=== PATIENT | female | born 1985 | race Caucasian/White ===

== ENCOUNTER 2016-06-27 12:04 | Emergency (ER) | payer OTHER ==
[~2016-06-27] VITALS: Ht 165.1 cm; Wt 56.7 kg
[~2016-06-27 12:04] MED LIST: ALBUTEROL0.09 MG/A2 INH; AMOXICILLIN500 MG PO; ANTIVERT/2525 MG PO; BENTYL10 MG PO; CEFTIN500 M1 PO; CIPRO500 MG PO; HYDROCODONE BIT1 T11 PO; KEFLEX500 MG PO; MACROBID100 M1 PO; MOTRIN600 MG PO; MOTRIN800 MG PO; MULTIVITAMIN FO1 CAP PO; NAPROSYN500 MG PO; NEXIUM20 MG PO; PERCOCET 325 MG1 TA2 PO; PRENATAL1 TA3 PO; REMERON30 MG PO; ULTRAM50 MG PO; ZOFRAN ODT4 MG SL
[2016-06-27] MEDS ORDERED: AMOXICILLIN500 M2 PO (13:52)
[2016-07-03] MEDS ORDERED: PREDNISONE50 MG PO (01:57)
[2016-07-03] MEDS ORDERED: NAPROSYN500 MG PO (01:57)
[2016-07-27] MEDS ORDERED: NAPROSYN500 MG PO (15:06)
[2016-07-27] MEDS ORDERED: HYDROCODONE BIT1 T11 PO (16:24)
[2016-08-02] MEDS ORDERED: ZOFRAN4 MG PO (11:42)
[2016-08-03] MEDS ORDERED: Zofran4 MG PO (09:34)
[2016-08-03] MEDS ORDERED: PERCOCET 325 MG1 TA2 PO (09:36)
[2016-08-10] MEDS ORDERED: PERCOCET 325 MG1 TA2 PO (18:47)
== END 2016-06-27 13:54 | disposition home or self-care (01) ==
LOC: ED 12:04
DX: J02.9 Acute pharyngitis, unspecified (principal); F17.200 Nicotine dependence, unspecified, uncomplicated; Z91.030 Bee allergy status; Z88.8 Allergy status to other drugs, medicaments and biological substances; Z79.899 Other long term (current) drug therapy

== ENCOUNTER → 2016-09-27 | Outpatient (CLI) | payer OTHER ==
[~2016-09-27] MED LIST changes: +AMOXICILLIN500 M2 PO; +PREDNISONE50 MG PO; +ZOFRAN4 MG PO; +Zofran4 MG PO
== END | disposition home or self-care (01) ==
LOC: ORTHO 01:57
DX: S82.401D Unspecified fracture of shaft of right fibula, subsequent encounter for closed fracture with routine healing (principal); Z47.33 Aftercare following explantation of knee joint prosthesis; X58.XXXD Exposure to other specified factors, subsequent encounter

== ENCOUNTER → 2016-10-18 | Outpatient (CLI) | payer OTHER | END | disposition home or self-care (01) | LOC: ORTHO 00:31 | DX: Z47.89 Encounter for other orthopedic aftercare (principal); S82.61XD Displaced fracture of lateral malleolus of right fibula, subsequent encounter for closed fracture with routine healing; X58.XXXD Exposure to other specified factors, subsequent encounter ==

== ENCOUNTER 2016-11-11 11:43 | Emergency (ER) | payer OTHER ==
[~2016-11-11] VITALS: Ht 165.1 cm; Wt 56.7 kg
== END 2016-11-11 13:29 | disposition home or self-care (01) ==
LOC: ED 11:43
DX: S93.401A Sprain of unspecified ligament of right ankle, initial encounter (principal); F17.200 Nicotine dependence, unspecified, uncomplicated; Z88.8 Allergy status to other drugs, medicaments and biological substances; X58.XXXA Exposure to other specified factors, initial encounter; Y93.9 Activity, unspecified; Y92.9 Unspecified place or not applicable; Y99.9 Unspecified external cause status

== ENCOUNTER → 2017-01-17 | Outpatient (CLI) | payer OTHER | END | disposition home or self-care (01) | LOC: ORTHO 02:32 | DX: S82.401D Unspecified fracture of shaft of right fibula, subsequent encounter for closed fracture with routine healing (principal); X58.XXXD Exposure to other specified factors, subsequent encounter ==

== ENCOUNTER 2017-01-20 16:20 | Emergency (ER) | payer OTHER ==
[~2017-01-20] VITALS: Ht 162.5 cm; Wt 56.7 kg
[2017-01-20 16:53] LABS: BILIRUBIN NEGATIVE (NEGATIVE); BLOOD NEGATIVE (NEGATIVE); CLARITY SL CLOUDY (CLEAR); COLOR YELLOW (YELLOW); GLUCOSE NEGATIVE (NEGATIVE); KETONE NEGATIVE (NEGATIVE); LEUKO ESTERASE TRACE (NEGATIVE); NITRITE NEGATIVE (NEGATIVE); PROTEIN NEGATIVE (NEGATIVE); SPECIFIC GRAVITY <= 1.005 (1.005-1.030); UROBILINOGEN 0.2 E.U./dl (0.2-1.0)
[2017-01-20 16:57] LABS: BACTERIA 2+; RBC 0-2 rbc/hpf (0-2); URINE REFLEX COMMENT YES (NO)
[2017-01-20 17:22] LABS: BASO % 0.1 % (0.0-1.0); EOS # 0.1 10*3/uL (0.0-0.4); EOS % 1.6 % (1.0-4.0); HEMATOCRIT 32.7 % (37.0-47.0); HEMOGLOBIN 11.2 g/dl (12.0-16.0); LYMPH # 3.4 10*3/uL (1.3-4.4); MEAN CELL VOLUME 91.1 fl (81.0-99.0); MEAN CORPUSCULAR HGB 31.2 pg (27.0-31.0); MEAN CORPUSCULAR HGB CONC 34.3 g/dl (33.0-37.0); MEAN PLATELET VOLUME 9.9 fl (9.6-12.3); MONO # 0.5 10*3/uL (0.1-1.0); MONO % 5.9 % (3.0-9.0); NEUT # 4.8 10*3/uL (2.3-7.9); NEUT % 54.2 % (47.0-73.0); PLATELET COUNT AUTOMATED 256 10*3/uL (130-400); RED BLOOD COUNT 3.59 10*6/uL (4.10-5.10); RED CELL DISTRI WIDTH 12.5 % (0-14.5); WHITE BLOOD COUNT 8.9 10*3/uL (4.8-10.8)
[2017-01-20 17:36] LABS: ALKALINE PHOSPHATASE 51 U/L (45-117); BILIRUBIN, TOTAL 0.8 mg/dl (0.2-1.0); BUN 9 mg/dl (7-24); CARBON DIOXIDE 25 mmol/L (21-32); CHLORIDE 108 mmol/L (98-107); EST GLOM FILT AFRICAN AMERICAN > 60 ml/min; GLUCOSE 88 mg/dL (65-99); POTASSIUM 3.6 mmol/L (3.5-5.1); SGOT/AST 11 IU/L (3-35); SGPT/ALT 17 U/L (12-78); SODIUM 139 mmol/L (136-145); TOTAL PROTEIN 7.3 gm/dL (6.4-8.2)
[2017-01-20] MEDS ORDERED: ZOFRAN ODT4 MG SL (19:02)
== END 2017-01-20 19:17 | disposition home or self-care (01) ==
LOC: ED 16:20
PROVIDERS: Physician Assistant
DX: R10.31 Right lower quadrant pain (principal); F17.200 Nicotine dependence, unspecified, uncomplicated; Z98.51 Tubal ligation status; Z88.8 Allergy status to other drugs, medicaments and biological substances

== ENCOUNTER 2017-03-02 19:24 | Emergency (ER) | payer OTHER ==
[~2017-03-02] VITALS: Ht 165.1 cm; Wt 56.7 kg
[2017-03-02] MEDS ORDERED: CEPHALEXIN500 M1 PO (20:03)
== END 2017-03-02 21:03 | disposition home or self-care (01) ==
LOC: ED 19:24
DX: T22.011A Burn of unspecified degree of right forearm, initial encounter (principal); L08.89 Other specified local infections of the skin and subcutaneous tissue; F17.200 Nicotine dependence, unspecified, uncomplicated; Z88.8 Allergy status to other drugs, medicaments and biological substances; X08.8XXA Exposure to other specified smoke, fire and flames, initial encounter; Y93.89 Activity, other specified; Y92.89 Other specified places as the place of occurrence of the external cause; Y99.8 Other external cause status

== ENCOUNTER 2017-04-05 11:32 | Emergency (ER) | payer OTHER ==
[~2017-04-05] VITALS: Ht 165.1 cm; Wt 59.9 kg
[~2017-04-05 11:32] MED LIST changes: +CEPHALEXIN500 M1 PO
[2017-04-05] MEDS ORDERED: NAPROSYN500 MG PO (13:09)
== END 2017-04-05 13:28 | disposition home or self-care (01) ==
LOC: ED 11:32
DX: R51 Headache (principal); F17.200 Nicotine dependence, unspecified, uncomplicated; Z98.51 Tubal ligation status; Z88.8 Allergy status to other drugs, medicaments and biological substances

== ENCOUNTER 2017-04-17 19:50 | Emergency (ER) | payer OTHER ==
[~2017-04-17] VITALS: Ht 162.5 cm; Wt 61.1 kg
[2017-04-17] MEDS ORDERED: ORPHENADRINE E100 MG PO (21:16)
== END 2017-04-17 21:22 | disposition home or self-care (01) ==
LOC: ED 19:50
DX: M54.5 Low back pain (principal); M25.571 Pain in right ankle and joints of right foot; F17.200 Nicotine dependence, unspecified, uncomplicated; R51 Headache; Z91.030 Bee allergy status; Z88.8 Allergy status to other drugs, medicaments and biological substances; W20.8XXA Other cause of strike by thrown, projected or falling object, initial encounter; Y93.89 Activity, other specified; Y92.89 Other specified places as the place of occurrence of the external cause; Y99.8 Other external cause status

== ENCOUNTER 2017-05-04 21:52 | Emergency (ER) | payer OTHER ==
[~2017-05-04] VITALS: Ht 165.1 cm; Wt 61.2 kg
[~2017-05-04 21:52] MED LIST changes: +ORPHENADRINE E100 MG PO
== END 2017-05-04 23:04 | disposition home or self-care (01) ==
LOC: ED 21:52
DX: R21 Rash and other nonspecific skin eruption (principal); F17.200 Nicotine dependence, unspecified, uncomplicated; Z98.51 Tubal ligation status; Z91.030 Bee allergy status; Z88.8 Allergy status to other drugs, medicaments and biological substances

== ENCOUNTER → 2017-05-23 | Outpatient (CLI) | payer OTHER | END | disposition home or self-care (01) | LOC: ORTHO 00:57 | DX: S82.61XD Displaced fracture of lateral malleolus of right fibula, subsequent encounter for closed fracture with routine healing (principal); X58.XXXD Exposure to other specified factors, subsequent encounter ==

== ENCOUNTER → 2017-05-27 | Outpatient (CLI) | payer OTHER ==
[2017-05-27 11:05] LABS: BASO % 0.3 % (0.0-1.0); EOS # 0.2 10*3/uL (0.0-0.4); EOS % 2.4 % (1.0-4.0); HEMATOCRIT 33.9 % (37.0-47.0); HEMOGLOBIN 11.5 g/dl (12.0-16.0); LYMPH % 38.9 % (27.0-41.0); MEAN CELL VOLUME 92.1 fl (81.0-99.0); MEAN CORPUSCULAR HGB 31.3 pg (27.0-31.0); MEAN CORPUSCULAR HGB CONC 33.9 g/dl (33.0-37.0); MEAN PLATELET VOLUME 9.6 fl (9.6-12.3); MONO # 0.7 10*3/uL (0.1-1.0); NEUT # 3.7 10*3/uL (2.3-7.9); PLATELET COUNT AUTOMATED 275 10*3/uL (130-400); RED BLOOD COUNT 3.68 10*6/uL (4.10-5.10); RED CELL DISTRI WIDTH 12.9 % (0-14.5); WHITE BLOOD COUNT 7.6 10*3/uL (4.8-10.8)
[2017-05-27 11:31] LABS: POTASSIUM 3.7 mmol/L (3.5-5.1)
== END ==
LOC: LAB 10:10
PROVIDERS: Orthopaedic Surgery
DX: Z01.818 Encounter for other preprocedural examination (principal); Z87.891 Personal history of nicotine dependence

== ENCOUNTER → 2017-06-02 | Day surgery (SDC) | payer OTHER ==
[~2017-06-02] VITALS: Ht 165.1 cm; Wt 62.1 kg
[2017-06-02] VITALS (10 sets, daily range): BP systolic 92–119; BP diastolic 50–88
[~2017-06-02] MED LIST changes: +NORCO 5-325 TA1 EACH PO
--- NOTE | ~2017-06-02 | O ---
[place], [place] OPERATIVE NOTE NAME: DEMARCO HOU [facility] #: [id number] UNIT #: [id number] ROOM: DOCTOR: BETY YANES DO BIRTHDATE: [birth year] DOS: 06/02/2017 PREOPERATIVE DIAGNOSIS: Retained hardware, right ankle. POSTOPERATIVE DIAGNOSIS: Retained hardware, right ankle. OPERATIVE PROCEDURE: Removal of retained hardware, right ankle. SURGEON: Bety Yanes DO. PARTS PERSON: Heron. ANESTHESIA: General LMA intubation. INDICATIONS: The patient is a 31-year-old female with a history of a right ankle lateral malleolus fracture approximately 11 months ago. The patient had excellent healing of the fracture, but continued to complain of discomfort about the screws on the lateral ankle. The risks and benefits of removal of hardware were explained to the patient preoperatively. Preoperative labs and x-rays were obtained. PROCEDURE IN DETAIL: The right lower extremity was marked in the holding room. The patient was brought to the operative suite. A general anesthetic with LMA intubation was performed. The patient received Ancef 1 gram IV piggyback preoperatively. The timeout was performed. The tourniquet was placed at the right upper thigh. The right lower extremity was prepped and draped in the usual orthopedic fashion. The extremity was exsanguinated. The tourniquet was inflated to 250 mmHg. The incision was planned along the lateral malleolus distally along the previously made incision, which was noted to be well healed without evidence of infection. The incision was made sharply with a scalpel. Subcutaneous tissue was spread down to the level of the plate and screws, which were noted to be covered with a thin layer of fibrous tissue. The Meridian elevator was used to expose the plate and screws. There were noted to be 5 screws within the plate and 2 of these were locking screws. The screws were removed using a handheld screwdriver. The plate was then removed using the Meridian elevator. All screw holes were cleared of any remaining fibrous or bony debris. A culture was taken deep within the screw holes. A single lag screw remained from anterior to posterior and this was removed in a similar fashion. The curette was used to remove any debris from the screw hole. The area was copiously irrigated with normal saline. The C-arm was noted to be used throughout the case to confirm positioning and removal of all hardware. The wound was closed in a layered fashion using 2-0 Vicryl, followed by 4-0 Prolene in a horizontal mattress suture fashion. The area was injected with lidocaine 2% with epinephrine. Xeroform, 4 x 4s, cast padding and an Marvin bandage were used to complete the dressing. The tourniquet was released. The anesthetic was reversed. The patient was extubated and taken to the recovery [place], [place] OPERATIVE NOTE NAME: DEMARCO HOU UNIT #: [id number] ROOM: DOCTOR: BETY YANES DO BIRTHDATE: [birth year] room in satisfactory condition. Sponge and needle count correct. ESTIMATED BLOOD LOSS: None. SPECIMENS: Culture and gram stain, 1 plate and 6 screws. DRAINS: None. PACKING: None. COMPLICATIONS: None. BETY YANES DO CM:OPRECORD:OPERATIVE NOTE 52 31 BETY YANES DO 06/02/172032 interface
== END | disposition home or self-care (01) ==
LOC: SDC 05-27 10:15
DX: Z47.2 Encounter for removal of internal fixation device (principal); F41.9 Anxiety disorder, unspecified; F17.210 Nicotine dependence, cigarettes, uncomplicated; Z79.899 Other long term (current) drug therapy; Z88.8 Allergy status to other drugs, medicaments and biological substances; Z98.51 Tubal ligation status

== ENCOUNTER 2017-06-09 18:54 | Emergency (ER) | payer OTHER ==
[~2017-06-09] VITALS: Wt 61.2 kg
[2017-06-09] MEDS ORDERED: NORCO 5-325 TA1 EACH PO (19:03)
[2017-06-09] MEDS ORDERED: IMITREX5 M1 PO (19:03)
== END 2017-06-09 19:45 | disposition home or self-care (01) ==
LOC: ED 18:54
DX: M25.571 Pain in right ankle and joints of right foot (principal); F17.200 Nicotine dependence, unspecified, uncomplicated; F10.10 Alcohol abuse, uncomplicated; Z91.030 Bee allergy status; Z88.8 Allergy status to other drugs, medicaments and biological substances; Z79.899 Other long term (current) drug therapy

== ENCOUNTER 2017-06-28 10:03 | Emergency (ER) | payer OTHER ==
[~2017-06-28] VITALS: Ht 167.6 cm; Wt 59.0 kg
[~2017-06-28 10:03] MED LIST changes: +IMITREX5 M1 PO
[2017-06-28] MEDS ORDERED: Motrin,Rufen800 MG PO (12:47)
[2017-06-28] MEDS ORDERED: CYCLOBENZAPRINE10 MG PO (12:47)
== END 2017-06-28 13:15 | disposition home or self-care (01) ==
LOC: ED 10:03
DX: S16.1XXA Strain of muscle, fascia and tendon at neck level, initial encounter (principal); F10.10 Alcohol abuse, uncomplicated; Z98.51 Tubal ligation status; Z79.899 Other long term (current) drug therapy; Z88.8 Allergy status to other drugs, medicaments and biological substances; Z91.030 Bee allergy status; V49.59XA Passenger injured in collision with other motor vehicles in traffic accident, initial encounter; Y93.89 Activity, other specified; Y92.89 Other specified places as the place of occurrence of the external cause; Y99.8 Other external cause status

== ENCOUNTER → 2017-07-06 | Outpatient (CLI) | payer OTHER ==
[~2017-07-06] MED LIST changes: +CYCLOBENZAPRINE10 MG PO; +Motrin,Rufen800 MG PO
== END | disposition home or self-care (01) ==
LOC: LAB 06:54 → RAD 06:54 → US 07:30
DX: M79.605 Pain in left leg (principal); R07.81 Pleurodynia; R10.12 Left upper quadrant pain; M62.838 Other muscle spasm; V89.9XXA Person injured in unspecified vehicle accident, initial encounter; Y93.89 Activity, other specified; Y92.89 Other specified places as the place of occurrence of the external cause; Y99.8 Other external cause status

== ENCOUNTER 2017-07-27 16:49 | Emergency (ER) | payer OTHER ==
[~2017-07-27] VITALS: Wt 61.2 kg
[2017-07-27] MEDS ORDERED: CYCLOBENZAPRINE10 MG PO (16:53)
[2017-07-27] MEDS ORDERED: Motrin,Rufen800 MG PO (17:04)
[2017-07-27] MEDS ORDERED: AUGMENTIN 875875 MG PO (17:04)
== END 2017-07-27 17:18 | disposition home or self-care (01) ==
LOC: ED 16:49
DX: H92.01 Otalgia, right ear (principal); F17.200 Nicotine dependence, unspecified, uncomplicated; Z98.51 Tubal ligation status; Z98.890 Other specified postprocedural states; Z79.899 Other long term (current) drug therapy; Z91.030 Bee allergy status; Z88.8 Allergy status to other drugs, medicaments and biological substances

== ENCOUNTER 2017-12-02 20:18 | Emergency (ER) | payer OTHER ==
[~2017-12-02] VITALS: Ht 165.1 cm; Wt 59.9 kg
[~2017-12-02 20:18] MED LIST changes: +AUGMENTIN 875875 MG PO
[2017-12-02 20:57] LABS: BILIRUBIN 1+ (NEGATIVE); BLOOD 3+ (NEGATIVE); CLARITY CLEAR (CLEAR); COLOR ORANGE (YELLOW); GLUCOSE 1+ (NEGATIVE); KETONE NEGATIVE (NEGATIVE)
[2017-12-02 20:58] LABS: LEUKO ESTERASE TRACE (NEGATIVE); NITRITE POSITIVE (NEGATIVE); PH 6.5 (5.0-9.0)
[2017-12-02 21:07] LABS: BACTERIA 1+; EPITHELIAL CELLS 15-20; RBC 31-40 rbc/hpf (0-2); WBC 21-30 wbc/hpf (0-5)
[2017-12-02] MEDS ORDERED: SEPTDS PO (21:16)
[2017-12-02] MEDS ORDERED: PYRIDIUM200 M1 PO (21:16)
== END 2017-12-02 21:23 | disposition home or self-care (01) ==
LOC: ED 20:18
PROVIDERS: Physician Assistant
DX: N39.0 Urinary tract infection, site not specified (principal); Z88.8 Allergy status to other drugs, medicaments and biological substances; Z91.030 Bee allergy status

== ENCOUNTER 2017-12-30 19:51 | Emergency (ER) | payer OTHER ==
[~2017-12-30] VITALS: Ht 165.1 cm; Wt 60.8 kg
[~2017-12-30 19:51] MED LIST changes: +PYRIDIUM200 M1 PO; +SEPTDS PO
[2017-12-30 20:07] LABS: BILIRUBIN NEGATIVE (NEGATIVE); BLOOD NEGATIVE (NEGATIVE); CLARITY CLEAR (CLEAR); COLOR YELLOW (YELLOW); GLUCOSE NEGATIVE (NEGATIVE); KETONE NEGATIVE (NEGATIVE); LEUKO ESTERASE NEGATIVE (NEGATIVE); NITRITE NEGATIVE (NEGATIVE); PH 5.5 (5.0-9.0); SPECIFIC GRAVITY <= 1.005 (1.005-1.030); UROBILINOGEN 0.2 E.U./dl (0.2-1.0)
[2017-12-30 20:16] LABS: BACTERIA TRACE; WBC 0-2 wbc/hpf (0-5)
[2017-12-30 20:27] LABS: BASO % 0.2 % (0.0-1.0); EOS # 0.2 10*3/uL (0.0-0.4); EOS % 2.8 % (1.0-4.0); HEMATOCRIT 31.4 % (37.0-47.0); HEMOGLOBIN 10.3 g/dl (12.0-16.0); LYMPH # 2.6 10*3/uL (1.3-4.4); MEAN CELL VOLUME 92.6 fl (81.0-99.0); MEAN CORPUSCULAR HGB 30.4 pg (27.0-31.0); MEAN CORPUSCULAR HGB CONC 32.8 g/dl (33.0-37.0); MEAN PLATELET VOLUME 8.9 fl (9.6-12.3); MONO # 0.5 10*3/uL (0.1-1.0); NEUT # 2.5 10*3/uL (2.3-7.9); NEUT % 43.8 % (47.0-73.0); PLATELET COUNT AUTOMATED 239 10*3/uL (130-400); RED BLOOD COUNT 3.39 10*6/uL (4.10-5.10); RED CELL DISTRI WIDTH 13.2 % (0-14.5); WHITE BLOOD COUNT 5.8 10*3/uL (4.8-10.8)
[2017-12-30 20:42] LABS: ALBUMIN 3.9 gm/dl (3.1-4.5); ALKALINE PHOSPHATASE 45 U/L (45-117); BUN 9 mg/dl (7-24); CHLORIDE 106 mmol/L (98-107); CREATININE 0.73 mg/dL (0.55-1.02); LIPASE 74 U/L (73-393); POTASSIUM 3.4 mmol/L (3.5-5.1); SGOT/AST 12 IU/L (3-35); SGPT/ALT 18 U/L (12-78); SODIUM 139 mmol/L (136-145); TOTAL PROTEIN 7.1 gm/dL (6.4-8.2)
== END 2017-12-30 22:33 | disposition home or self-care (01) ==
LOC: ED 19:51
PROVIDERS: Nurse Practitioner Family
DX: A08.4 Viral intestinal infection, unspecified (principal); F17.200 Nicotine dependence, unspecified, uncomplicated; Z91.030 Bee allergy status; Z88.8 Allergy status to other drugs, medicaments and biological substances

== ENCOUNTER 2018-01-22 15:58 | Emergency (ER) | payer OTHER ==
[~2018-01-22] VITALS: Ht 165.1 cm; Wt 58.5 kg
[2018-01-22] MEDS ORDERED: Motrin,Rufen800 MG PO (18:19)
== END 2018-01-22 18:27 | disposition home or self-care (01) ==
LOC: ED 15:58
DX: M25.562 Pain in left knee (principal); Z91.030 Bee allergy status; Z88.8 Allergy status to other drugs, medicaments and biological substances; Z98.51 Tubal ligation status

== ENCOUNTER 2018-03-05 18:00 | Emergency (ER) | payer OTHER ==
[~2018-03-05] VITALS: Wt 56.7 kg
[2018-03-05 18:23] LABS: BASO % 0.1 % (0.0-1.0); EOS # 0.2 10*3/uL (0.0-0.4); EOS % 2.4 % (1.0-4.0); HEMATOCRIT 32.3 % (37.0-47.0); HEMOGLOBIN 10.6 g/dl (12.0-16.0); LYMPH # 2.8 10*3/uL (1.3-4.4); LYMPH % 35.4 % (27.0-41.0); MEAN CELL VOLUME 93.4 fl (81.0-99.0); MEAN CORPUSCULAR HGB 30.6 pg (27.0-31.0); MEAN CORPUSCULAR HGB CONC 32.8 g/dl (33.0-37.0); MEAN PLATELET VOLUME 9.4 fl (9.6-12.3); MONO # 0.4 10*3/uL (0.1-1.0); MONO % 5.4 % (3.0-9.0); NEUT # 4.5 10*3/uL (2.3-7.9); NEUT % 56.4 % (47.0-73.0); PLATELET COUNT AUTOMATED 266 10*3/uL (130-400); RED BLOOD COUNT 3.46 10*6/uL (4.10-5.10)
[2018-03-05 18:38] LABS: BUN 10 mg/dl (7-24); CHLORIDE 109 mmol/L (98-107); CREATININE 0.72 mg/dL (0.55-1.02); POTASSIUM 3.8 mmol/L (3.5-5.1); SODIUM 141 mmol/L (136-145)
== END 2018-03-05 19:08 | disposition home or self-care (01) ==
LOC: ED 18:00
PROVIDERS: Emergency Medicine
DX: G43.909 Migraine, unspecified, not intractable, without status migrainosus (principal); F17.200 Nicotine dependence, unspecified, uncomplicated; Z91.030 Bee allergy status; Z88.8 Allergy status to other drugs, medicaments and biological substances; Z98.51 Tubal ligation status

== ENCOUNTER 2018-03-11 13:19 | Emergency (ER) | payer OTHER ==
[~2018-03-11] VITALS: Wt 59.0 kg
--- NOTE | ~2018-03-11 | EKG ---
[place], [place] ELECTROCARDIOGRAM REPORT NAME: DEMARCO HOU UNIT #: [id number] ROOM: DOCTOR: EPIPHANY DRAFT REPORT BIRTHDATE: [birth year] [facility] Test Date: 2018-03-11 Test Time: 13:24:36 Pat Name: DEMARCO HOU Department: Room: Gender: F Healthcare Account Manager: : 1985 Requested By: MEHDI HERRERA Order Number: [id number] Reading MD: Yancy Gill MD Measurements Intervals [place] Rate: 112 P: 78 DC: 166 QRS: 21 QRSD: 86 T: 208 QT: 331 QTc: 452 Interpretive Statements Sinus tachycardia Nonspecific T abnormalities, lateral leads Electronically Signed On 03-13-2018 13:57:46 PDT by Yancy Gill MD CM:EKGRPT:ELECTROCARDIOGRAM REPORT [id number] MEHDI CHUA DRAFT REPORT MEHDI HERRERA M.D.
[2018-03-11] MEDS ORDERED: BUSPIRONE HCL10 MG PO (13:29)
[2018-03-11] MEDS ORDERED: SERTRALINE HYD100 MG PO (13:29)
[2018-03-11] MEDS ORDERED: HYDROXYZINE PAM25 M1 PO (13:30)
[2018-03-11] MEDS ORDERED: SUMATRIPTAN SUC25 M1 PO (13:30)
[2018-03-11 14:36] LABS: BASO % 0.2 % (0.0-1.0); EOS # 0.2 10*3/uL (0.0-0.4); EOS % 2.2 % (1.0-4.0); HEMATOCRIT 35.4 % (37.0-47.0); HEMOGLOBIN 11.7 g/dl (12.0-16.0); LYMPH % 36.9 % (27.0-41.0); MEAN CELL VOLUME 92.9 fl (81.0-99.0); MEAN CORPUSCULAR HGB 30.7 pg (27.0-31.0); MEAN CORPUSCULAR HGB CONC 33.1 g/dl (33.0-37.0); MEAN PLATELET VOLUME 9.3 fl (9.6-12.3); MONO # 0.4 10*3/uL (0.1-1.0); NEUT # 4.5 10*3/uL (2.3-7.9); NEUT % 55.3 % (47.0-73.0); PLATELET COUNT AUTOMATED 275 10*3/uL (130-400); RED BLOOD COUNT 3.81 10*6/uL (4.10-5.10); RED CELL DISTRI WIDTH 12.9 % (0-14.5); WHITE BLOOD COUNT 8.1 10*3/uL (4.8-10.8)
[2018-03-11 14:45] LABS: ACT PARTIAL THROMBO TIME 26.4 SECONDS (20.8-31.5)
[2018-03-11 14:53] LABS: ALBUMIN 4.5 gm/dl (3.1-4.5); ALKALINE PHOSPHATASE 53 U/L (45-117); BUN 11 mg/dl (7-24); CHLORIDE 108 mmol/L (98-107); CREATININE 0.62 mg/dL (0.55-1.02); POTASSIUM 3.6 mmol/L (3.5-5.1); SGOT/AST 11 IU/L (3-35); SGPT/ALT 20 U/L (12-78); SODIUM 141 mmol/L (136-145); TOTAL PROTEIN 7.6 gm/dL (6.4-8.2)
[2018-03-11 14:56] LABS: TROPONIN I < 0.015 ng/ml (<0.045)
[2018-03-11] MEDS ORDERED: IBU800 MG PO (16:09)
== END 2018-03-11 16:19 | disposition home or self-care (01) ==
LOC: ED 13:19
PROVIDERS: Emergency Medicine
DX: R09.1 Pleurisy (principal); G43.909 Migraine, unspecified, not intractable, without status migrainosus; Z91.030 Bee allergy status; Z88.8 Allergy status to other drugs, medicaments and biological substances; Z79.899 Other long term (current) drug therapy

== ENCOUNTER 2018-05-20 16:56 | Emergency (ER) | payer OTHER ==
[~2018-05-20] VITALS: Wt 58.1 kg
[~2018-05-20 16:56] MED LIST changes: +BUSPIRONE HCL10 MG PO; +HYDROXYZINE PAM25 M1 PO; +IBU800 MG PO; +SERTRALINE HYD100 MG PO; +SUMATRIPTAN SUC25 M1 PO
[2018-05-20 17:19] LABS: BASO % 0.1 % (0.0-1.0); EOS % 0.3 % (1.0-4.0); HEMATOCRIT 36.1 % (37.0-47.0); HEMOGLOBIN 12.2 g/dl (12.0-16.0); LYMPH # 3.3 10*3/uL (1.3-4.4); LYMPH % 32.8 % (27.0-41.0); MEAN CELL VOLUME 92.1 fl (81.0-99.0); MEAN CORPUSCULAR HGB 31.1 pg (27.0-31.0); MEAN CORPUSCULAR HGB CONC 33.8 g/dl (33.0-37.0); MEAN PLATELET VOLUME 9.9 fl (9.6-12.3); MONO # 0.5 10*3/uL (0.1-1.0); MONO % 4.8 % (3.0-9.0); NEUT # 6.3 10*3/uL (2.3-7.9); NEUT % 61.7 % (47.0-73.0); PLATELET COUNT AUTOMATED 302 10*3/uL (130-400); RED BLOOD COUNT 3.92 10*6/uL (4.10-5.10); RED CELL DISTRI WIDTH 12.8 % (0-14.5); WHITE BLOOD COUNT 10.2 10*3/uL (4.8-10.8)
[2018-05-20 17:37] LABS: ALBUMIN 4.4 gm/dl (3.1-4.5); ALKALINE PHOSPHATASE 48 U/L (45-117); BUN 5 mg/dl (7-24); CHLORIDE 107 mmol/L (98-107); CREATININE 0.75 mg/dL (0.55-1.02); LIPASE 74 U/L (73-393); POTASSIUM 3.3 mmol/L (3.5-5.1); SGOT/AST 10 IU/L (3-35); SGPT/ALT 18 U/L (12-78); SODIUM 140 mmol/L (136-145); TOTAL PROTEIN 7.9 gm/dL (6.4-8.2)
[2018-05-20 17:44] LABS: BILIRUBIN NEGATIVE (NEGATIVE); BLOOD NEGATIVE (NEGATIVE); CLARITY SL CLOUDY (CLEAR); COLOR YELLOW (YELLOW); GLUCOSE NEGATIVE (NEGATIVE); KETONE NEGATIVE (NEGATIVE); LEUKO ESTERASE NEGATIVE (NEGATIVE); NITRITE NEGATIVE (NEGATIVE); SPECIFIC GRAVITY <= 1.005 (1.005-1.030); UROBILINOGEN 0.2 E.U./dl (0.2-1.0)
[2018-05-20 17:54] LABS: BACTERIA 1+; EPITHELIAL CELLS 21-30
[2018-05-20] MEDS ORDERED: ZOFRAN ODT4 MG SL (18:29)
== END 2018-05-20 19:07 | disposition home or self-care (01) ==
LOC: ED 16:56
PROVIDERS: Nurse Practitioner Family
DX: K29.70 Gastritis, unspecified, without bleeding (principal); Z91.030 Bee allergy status; Z88.8 Allergy status to other drugs, medicaments and biological substances; Z79.899 Other long term (current) drug therapy

== ENCOUNTER 2018-07-22 16:21 | Emergency (ER) | payer OTHER ==
[~2018-07-22] VITALS: Ht 165.1 cm; Wt 55.3 kg
[2018-07-22] MEDS ORDERED: NAPROSYN500 MG PO (16:36)
[2018-09-04] MEDS ORDERED: CATAPRES-TTS 10.1 MG T (15:38)
== END 2018-07-22 17:51 | disposition home or self-care (01) ==
LOC: ED 16:21
DX: S90.32XA Contusion of left foot, initial encounter (principal); G43.909 Migraine, unspecified, not intractable, without status migrainosus; Z91.030 Bee allergy status; Z88.8 Allergy status to other drugs, medicaments and biological substances; Z79.899 Other long term (current) drug therapy; W10.8XXA Fall (on) (from) other stairs and steps, initial encounter; Y93.89 Activity, other specified; Y92.098 Other place in other non-institutional residence as the place of occurrence of the external cause; Y99.8 Other external cause status

== ENCOUNTER 2018-08-10 10:46 | Emergency (ER) | payer OTHER ==
[~2018-08-10] VITALS: Ht 165.1 cm; Wt 48.1 kg
[2018-09-04] MEDS ORDERED: CATAPRES-TTS 10.1 MG T (15:38)
== END 2018-08-10 12:26 | disposition home or self-care (01) ==
LOC: ED 10:46
DX: S80.12XA Contusion of left lower leg, initial encounter (principal); M25.552 Pain in left hip; Z79.899 Other long term (current) drug therapy; Z88.8 Allergy status to other drugs, medicaments and biological substances; Z91.030 Bee allergy status; W00.0XXA Fall on same level due to ice and snow, initial encounter; Y93.89 Activity, other specified; Y92.89 Other specified places as the place of occurrence of the external cause; Y99.8 Other external cause status

== ENCOUNTER 2018-09-22 13:33 | Emergency (ER) | payer OTHER ==
[~2018-09-22] VITALS: Ht 165.1 cm; Wt 54.4 kg
[~2018-09-22 13:33] MED LIST changes: +CATAPRES-TTS 10.1 MG T
[2018-09-22 14:20] LABS: BASO % 0.1 % (0.0-1.0); EOS # 0.2 10*3/uL (0.0-0.4); EOS % 2.3 % (1.0-4.0); HEMATOCRIT 34.4 % (37.0-47.0); HEMOGLOBIN 11.7 g/dl (12.0-16.0); LYMPH # 3.3 10*3/uL (1.3-4.4); LYMPH % 40.7 % (27.0-41.0); MEAN CORPUSCULAR HGB 31.3 pg (27.0-31.0); MEAN PLATELET VOLUME 9.3 fl (9.6-12.3); MONO # 0.5 10*3/uL (0.1-1.0); NEUT # 4.1 10*3/uL (2.3-7.9); NEUT % 50.7 % (47.0-73.0); PLATELET COUNT AUTOMATED 247 10*3/uL (130-400); RED BLOOD COUNT 3.74 10*6/uL (4.10-5.10); RED CELL DISTRI WIDTH 12.8 % (0-14.5); WHITE BLOOD COUNT 8.2 10*3/uL (4.8-10.8)
[2018-09-22 14:42] LABS: ALBUMIN 3.8 gm/dl (3.1-4.5); ALKALINE PHOSPHATASE 57 U/L (45-117); BUN 8 mg/dl (7-24); CHLORIDE 107 mmol/L (98-107); CREATININE 0.62 mg/dL (0.55-1.02); POTASSIUM 3.5 mmol/L (3.5-5.1); SGOT/AST 9 IU/L (3-35); SGPT/ALT 18 U/L (12-78); SODIUM 142 mmol/L (136-145); TOTAL PROTEIN 7.3 gm/dL (6.4-8.2)
[2018-09-22] MEDS ORDERED: AUGMENTIN 875-875 MG PO (15:02)
[2018-09-22] MEDS ORDERED: PREDNISONE20 M1 PO (15:02)
[2018-09-22] MEDS ORDERED: FLONASE ALLERG9.9 ML NAS (15:02)
== END 2018-09-22 15:05 | disposition home or self-care (01) ==
LOC: ED 13:33
PROVIDERS: Nurse Practitioner Family
DX: J01.90 Acute sinusitis, unspecified (principal); R42 Dizziness and giddiness; F17.200 Nicotine dependence, unspecified, uncomplicated; Z91.030 Bee allergy status; Z88.8 Allergy status to other drugs, medicaments and biological substances; Z79.899 Other long term (current) drug therapy

== ENCOUNTER 2019-01-01 13:47 | Emergency (ER) | payer OTHER ==
[~2019-01-01] VITALS: Ht 165.1 cm; Wt 56.7 kg
[~2019-01-01 13:47] MED LIST changes: +AUGMENTIN 875-875 MG PO; +FLONASE ALLERG9.9 ML NAS; +PREDNISONE20 M1 PO
== END 2019-01-01 15:50 | disposition left against medical advice (07) ==
LOC: ED 13:47
DX: R10.9 Unspecified abdominal pain (principal); R11.0 Nausea; Z53.21 Procedure and treatment not carried out due to patient leaving prior to being seen by health care provider

== ENCOUNTER 2019-02-08 19:24 | Emergency (ER) | payer OTHER ==
[~2019-02-08] VITALS: Ht 165.1 cm; Wt 56.7 kg
[2019-02-08] MEDS ORDERED: Motrin,Rufen800 MG PO (21:06)
== END 2019-02-08 21:26 | disposition home or self-care (01) ==
LOC: ED 19:24
DX: M77.9 Enthesopathy, unspecified (principal); F17.200 Nicotine dependence, unspecified, uncomplicated; G43.909 Migraine, unspecified, not intractable, without status migrainosus; Z79.899 Other long term (current) drug therapy; Z91.030 Bee allergy status; Z88.8 Allergy status to other drugs, medicaments and biological substances; W23.0XXA Caught, crushed, jammed, or pinched between moving objects, initial encounter; Y93.89 Activity, other specified; Y92.810 Car as the place of occurrence of the external cause; Y99.8 Other external cause status

== ENCOUNTER 2019-07-25 13:34 | Emergency (ER) | payer OTHER ==
[~2019-07-25] VITALS: Ht 165.1 cm; Wt 57.2 kg
== END 2019-07-25 16:00 | disposition home or self-care (01) ==
LOC: ED 13:34
DX: G43.909 Migraine, unspecified, not intractable, without status migrainosus (principal); H92.01 Otalgia, right ear; K21.9 Gastro-esophageal reflux disease without esophagitis; J45.909 Unspecified asthma, uncomplicated; F41.9 Anxiety disorder, unspecified; F32.9 Major depressive disorder, single episode, unspecified; Z91.038 Other insect allergy status; Z88.8 Allergy status to other drugs, medicaments and biological substances; Z79.2 Long term (current) use of antibiotics; Z79.899 Other long term (current) drug therapy

== ENCOUNTER 2019-07-31 11:03 | Emergency (ER) | payer OTHER ==
[~2019-07-31] VITALS: Ht 165.1 cm; Wt 55.8 kg
[2019-07-31 11:51] LABS: EOS # 0.1 10*3/uL (0.0-0.4); EOS % 0.6 % (1.0-4.0); HEMATOCRIT 34.5 % (37.0-47.0); HEMOGLOBIN 11.5 g/dl (12.0-16.0); LYMPH # 2.1 10*3/uL (1.3-4.4); LYMPH % 26.2 % (27.0-41.0); MEAN CELL VOLUME 92.2 fl (81.0-99.0); MEAN CORPUSCULAR HGB 30.7 pg (27.0-31.0); MEAN CORPUSCULAR HGB CONC 33.3 g/dl (33.0-37.0); MEAN PLATELET VOLUME 9.4 fl (9.6-12.3); MONO # 0.5 10*3/uL (0.1-1.0); MONO % 6.3 % (3.0-9.0); NEUT # 5.4 10*3/uL (2.3-7.9); NEUT % 66.5 % (47.0-73.0); PLATELET COUNT AUTOMATED 244 10*3/uL (130-400); RED BLOOD COUNT 3.74 10*6/uL (4.10-5.10); RED CELL DISTRI WIDTH 13.3 % (0-14.5); WHITE BLOOD COUNT 8.1 10*3/uL (4.8-10.8)
[2019-07-31 12:14] LABS: ALBUMIN 3.9 gm/dl (3.1-4.5); ALKALINE PHOSPHATASE 101 U/L (45-117); BUN 11 mg/dl (7-24); CHLORIDE 108 mmol/L (98-107); CREATININE 0.65 mg/dL (0.55-1.02); LIPASE 96 U/L (73-393); POTASSIUM 3.8 mmol/L (3.5-5.1); SGOT/AST 34 IU/L (3-35); SGPT/ALT 71 U/L (12-78); SODIUM 138 mmol/L (136-145); TOTAL PROTEIN 7.7 gm/dL (6.4-8.2)
[2019-07-31 12:56] LABS: CLARITY CLOUDY (CLEAR); COLOR YELLOW (YELLOW)
[2019-07-31 12:57] LABS: BACTERIA TRACE; BILIRUBIN NEGATIVE (NEGATIVE); BLOOD 3+ (NEGATIVE); GLUCOSE NEGATIVE (NEGATIVE); KETONE NEGATIVE (NEGATIVE); LEUKO ESTERASE 1+ (NEGATIVE); NITRITE NEGATIVE (NEGATIVE); RBC 51-100 rbc/hpf (0-2); UROBILINOGEN 0.2 E.U./dl (0.2-1.0); WBC 21-30 wbc/hpf (0-5)
[2019-07-31] MEDS ORDERED: ZOFRAN4 MG PO (13:25)
== END 2019-07-31 14:06 | disposition home or self-care (01) ==
LOC: ED 11:03
PROVIDERS: Nurse Practitioner Family
DX: B34.9 Viral infection, unspecified (principal); R11.2 Nausea with vomiting, unspecified; R19.7 Diarrhea, unspecified; K21.9 Gastro-esophageal reflux disease without esophagitis; J45.909 Unspecified asthma, uncomplicated; F17.200 Nicotine dependence, unspecified, uncomplicated; Z91.030 Bee allergy status; Z88.8 Allergy status to other drugs, medicaments and biological substances; Z79.899 Other long term (current) drug therapy

== ENCOUNTER 2019-09-27 17:31 | Emergency (ER) | payer OTHER ==
[~2019-09-27] VITALS: Ht 165.1 cm; Wt 59.0 kg
== END 2019-09-27 18:22 | disposition home or self-care (01) ==
LOC: ED 17:31
DX: K11.5 Sialolithiasis (principal); K21.9 Gastro-esophageal reflux disease without esophagitis; J45.909 Unspecified asthma, uncomplicated; Z91.030 Bee allergy status; Z88.8 Allergy status to other drugs, medicaments and biological substances; Z79.899 Other long term (current) drug therapy; Z87.442 Personal history of urinary calculi

== ENCOUNTER 2020-02-26 16:41 | Emergency (ER) | payer OTHER ==
[~2020-02-26] VITALS: Wt 62.6 kg
[2020-02-26] MEDS ORDERED: SEPTDS PO (17:29)
[2020-02-26] MEDS ORDERED: CEPHALEXIN500 M1 PO (17:29)
== END 2020-02-26 17:45 | disposition home or self-care (01) ==
LOC: ED 16:41
DX: L02.421 Furuncle of right axilla (principal); K21.9 Gastro-esophageal reflux disease without esophagitis; J45.909 Unspecified asthma, uncomplicated; Z91.030 Bee allergy status; Z88.8 Allergy status to other drugs, medicaments and biological substances; Z79.899 Other long term (current) drug therapy

== ENCOUNTER → 2020-07-11 | Outpatient (CLI) | payer OTHER | END | disposition home or self-care (01) | LOC: COVID19 14:47 | PROVIDERS: ATTEND Family Medicine | DX: Z20.822 Contact with and (suspected) exposure to COVID-19 (principal) ==

== ENCOUNTER 2020-09-04 11:31 | Emergency (ER) | payer OTHER ==
[~2020-09-04] VITALS: Ht 165.1 cm; Wt 61.2 kg
[2020-09-04] MEDS ORDERED: Motrin,Rufen800 MG PO (14:15)
== END 2020-09-04 14:29 | disposition home or self-care (01) ==
LOC: ED 11:31
DX: S89.91XA Unspecified injury of right lower leg, initial encounter (principal); F17.200 Nicotine dependence, unspecified, uncomplicated; Z91.030 Bee allergy status; Z88.8 Allergy status to other drugs, medicaments and biological substances; Z79.899 Other long term (current) drug therapy; Z98.51 Tubal ligation status; Z98.890 Other specified postprocedural states; W18.40XA Slipping, tripping and stumbling without falling, unspecified, initial encounter; Y93.89 Activity, other specified; Y92.89 Other specified places as the place of occurrence of the external cause; Y99.8 Other external cause status

== ENCOUNTER 2020-12-20 18:36 | Emergency (ER) | payer OTHER ==
[~2020-12-20] VITALS: Ht 165.1 cm; Wt 60.8 kg
== END 2020-12-20 22:26 | disposition home or self-care (01) ==
LOC: ED 18:36
DX: S66.811A Strain of other specified muscles, fascia and tendons at wrist and hand level, right hand, initial encounter (principal); G43.909 Migraine, unspecified, not intractable, without status migrainosus; F17.200 Nicotine dependence, unspecified, uncomplicated; Z91.030 Bee allergy status; Z88.8 Allergy status to other drugs, medicaments and biological substances; Z79.899 Other long term (current) drug therapy; Z79.2 Long term (current) use of antibiotics; Z98.51 Tubal ligation status; X58.XXXA Exposure to other specified factors, initial encounter; Y93.72 Activity, wrestling; Y92.89 Other specified places as the place of occurrence of the external cause; Y99.8 Other external cause status

== ENCOUNTER 2021-08-22 17:39 | Emergency (ER) | payer MEDICAID ==
[~2021-08-22] VITALS: Ht 165.1 cm; Wt 57.2 kg
[2021-08-22 18:16] LABS: BASO % 0.2 % (0.0-1.0); EOS % 0.6 % (1.0-4.0); HEMATOCRIT 33.6 % (37.0-47.0); LYMPH # 3.1 10*3/uL (1.3-4.4); MEAN CELL VOLUME 89.6 fl (81.0-99.0); MEAN CORPUSCULAR HGB 30.7 pg (27.0-31.0); MEAN CORPUSCULAR HGB CONC 34.2 g/dl (33.0-37.0); MEAN PLATELET VOLUME 9.1 fl (9.6-12.3); MONO # 0.4 10*3/uL (0.1-1.0); MONO % 6.5 % (3.0-9.0); NEUT # 2.8 10*3/uL (2.3-7.9); NEUT % 43.5 % (47.0-73.0); PLATELET COUNT AUTOMATED 316 10*3/uL (130-400); RED BLOOD COUNT 3.75 10*6/uL (4.10-5.10); RED CELL DISTRI WIDTH 13.2 % (0-14.5); WHITE BLOOD COUNT 6.3 10*3/uL (4.8-10.8)
[2021-08-22 18:31] LABS: ALKALINE PHOSPHATASE 55 U/L (45-117); BUN 7 mg/dl (7-24); CHLORIDE 108 mmol/L (98-107); CREATININE 0.64 mg/dL (0.55-1.02); POTASSIUM 3.1 mmol/L (3.5-5.1); SGOT/AST 14 IU/L (3-35); SGPT/ALT 23 U/L (12-78); SODIUM 137 mmol/L (136-145); TOTAL PROTEIN 7.4 gm/dL (6.4-8.2)
[2021-08-22 18:37] LABS: BILIRUBIN Negative (Negative); BLOOD Negative (Negative); CLARITY Clear (Clear); COLOR Yellow (Yellow); GLUCOSE Negative (Negative); KETONE Negative (Negative); LEUKO ESTERASE Negative (Negative); NITRITE Negative (Negative); PH 7.5 (4.5-8.0); UROBILINOGEN 0.2 E.U./dl (0.0-1.0)
[2021-08-22 18:51] LABS: BACTERIA 1+; RBC 0-2 rbc/hpf (0-2); WBC 0-2 wbc/hpf (0-5)
[2021-08-22] MEDS ORDERED: ZOFRAN4 MG PO (19:07)
== END 2021-08-22 19:17 | disposition home or self-care (01) ==
LOC: ED 17:39
PROVIDERS: Nurse Practitioner Family
DX: A08.4 Viral intestinal infection, unspecified (principal); Z88.8 Allergy status to other drugs, medicaments and biological substances; Z79.899 Other long term (current) drug therapy; Z90.89 Acquired absence of other organs; Z98.51 Tubal ligation status; Z98.890 Other specified postprocedural states

== ENCOUNTER 2021-10-06 14:39 | Emergency (ER) | payer MEDICAID ==
[~2021-10-06] VITALS: Ht 165.1 cm; Wt 61.2 kg
[2021-10-06] MEDS ORDERED: 'CLONIDINE0.1 MG PO (14:50)
[2021-10-06] MEDS ORDERED: DOXEPIN HCL10 MG PO (14:50)
[2021-10-06] MEDS ORDERED: AMPHETAMINE SAL15 M1 PO (14:50)
[2021-10-06] MEDS ORDERED: CYPROHEPTADINE H4 M1 PO (14:51)
== END 2021-10-06 15:16 | disposition home or self-care (01) ==
LOC: ED 14:39
DX: S61.213A Laceration without foreign body of left middle finger without damage to nail, initial encounter (principal); Z79.899 Other long term (current) drug therapy; Z88.8 Allergy status to other drugs, medicaments and biological substances; W45.8XXA Other foreign body or object entering through skin, initial encounter; Y93.89 Activity, other specified; Y92.89 Other specified places as the place of occurrence of the external cause; Y99.8 Other external cause status

== ENCOUNTER 2021-10-11 18:02 | Emergency (ER) | payer MEDICAID ==
[~2021-10-11] VITALS: Wt 59.0 kg
[~2021-10-11 18:02] MED LIST changes: +'CLONIDINE0.1 MG PO; +AMPHETAMINE SAL15 M1 PO; +CYPROHEPTADINE H4 M1 PO; +DOXEPIN HCL10 MG PO
== END 2021-10-11 20:39 | disposition home or self-care (01) ==
LOC: ED 18:02
DX: S60.042A Contusion of left ring finger without damage to nail, initial encounter (principal); S60.052A Contusion of left little finger without damage to nail, initial encounter; Z88.8 Allergy status to other drugs, medicaments and biological substances; Z79.899 Other long term (current) drug therapy; Z90.89 Acquired absence of other organs; Z98.51 Tubal ligation status; X58.XXXA Exposure to other specified factors, initial encounter; Y93.89 Activity, other specified; Y92.89 Other specified places as the place of occurrence of the external cause; Y99.8 Other external cause status

== ENCOUNTER 2024-05-24 09:07 | Emergency (ER) | payer MEDICAID ==
[2024-05-24] MEDS ORDERED: Ketorolac Tromethamine 15 MG/ML VIAL IV ONE (09:45)
[2024-05-24] MEDS ORDERED: diphenhydrAMINE hydrochloride 50 MG/ML VIAL IV ONE (09:45)
[2024-05-24] MEDS ORDERED: Prochlorperazine Edisylate 10 MG/2 ML VIAL IV ONE (09:45)
[2024-05-24] MEDS ORDERED: SODIUM CHLORIDE 0.9% 1,000 ML IV ONE (09:45)
[2024-05-24 09:59] LABS: BASO % 0.1 % (0.0-1.0); EOS # 0.1 10*3/uL (0.0-0.4); EOS % 1.6 % (1.0-4.0); HEMATOCRIT 33.6 % (37.0-47.0); MEAN CELL VOLUME 93.3 fl (81.0-99.0); MEAN CORPUSCULAR HGB 30.6 pg (27.0-31.0); MEAN CORPUSCULAR HGB CONC 32.7 g/dl (33.0-37.0); MEAN PLATELET VOLUME 8.9 fl (9.6-12.3); MONO # 0.6 10*3/uL (0.1-1.0); MONO % 8.5 % (3.0-9.0); NEUT # 3.8 10*3/uL (2.3-7.9); NEUT % 54.6 % (47.0-73.0); PLATELET COUNT AUTOMATED 296 10*3/uL (130-400); RED CELL DISTRI WIDTH 12.6 % (0-14.5)
[2024-05-24 10:18] LABS: BUN 11 mg/dl (9-23); CHLORIDE 106 mmol/L (98-107); POTASSIUM 3.7 mmol/L (3.4-5.1)
[2024-05-24] MEDS ORDERED: FAMOTIDINE 50 ML IV ONE (10:30)
[2024-05-24 10:38] LABS: BILIRUBIN Negative (Negative); BLOOD Negative (Negative); CLARITY Clear (Clear); COLOR Yellow (Yellow); GLUCOSE Negative (Negative); KETONE Negative (Negative); LEUKO ESTERASE Negative (Negative); NITRITE Negative (Negative); PH 6.5 (4.5-8.0); SPECIFIC GRAVITY <= 1.005 (1.001-1.030); UROBILINOGEN 0.2 E.U./dl (0.0-1.0)
[2024-05-24 11:04] LABS: BACTERIA TRACE; WBC 0-2 wbc/hpf (0-5)
[2024-05-24] MEDS ORDERED: COMPAZINE10 M1 PO (11:21)
[2024-05-24] MEDS ORDERED: IBU800 M2 PO (11:21)
== END 2024-05-24 11:25 | disposition home or self-care (01) ==
LOC: ED 09:07
PROVIDERS: Emergency Medicine
DX: G43.909 Migraine, unspecified, not intractable, without status migrainosus (principal); K21.9 Gastro-esophageal reflux disease without esophagitis; F41.9 Anxiety disorder, unspecified; F32.A Depression, unspecified; J45.909 Unspecified asthma, uncomplicated; Z87.442 Personal history of urinary calculi; Z88.8 Allergy status to other drugs, medicaments and biological substances; Z98.890 Other specified postprocedural states; Z98.51 Tubal ligation status

== ENCOUNTER 2024-06-18 14:09 | Emergency (ER) | payer MEDICAID ==
[~2024-06-18] VITALS: Ht 165.1 cm; Wt 59.9 kg
[~2024-06-18 14:09] MED LIST changes: +COMPAZINE10 M1 PO; +IBU800 M2 PO
[2024-06-18] MEDS ORDERED: Acetaminophen/Hydrocodone 5 MG/325 MG TABLET PO ONE (15:05)
== END 2024-06-18 17:04 | disposition home or self-care (01) ==
LOC: ED 14:09
DX: S53.492A Other sprain of left elbow, initial encounter (principal); K21.9 Gastro-esophageal reflux disease without esophagitis; F41.9 Anxiety disorder, unspecified; F32.A Depression, unspecified; J45.909 Unspecified asthma, uncomplicated; G43.909 Migraine, unspecified, not intractable, without status migrainosus; Z87.442 Personal history of urinary calculi; Z91.030 Bee allergy status; Z88.8 Allergy status to other drugs, medicaments and biological substances; Z98.51 Tubal ligation status; Z98.890 Other specified postprocedural states; W22.8XXA Striking against or struck by other objects, initial encounter; Y93.89 Activity, other specified; Y92.89 Other specified places as the place of occurrence of the external cause; Y99.8 Other external cause status

== ENCOUNTER 2024-08-10 08:59 | Emergency (ER) | payer MEDICAID ==
[~2024-08-10] VITALS: Ht 165.1 cm; Wt 55.8 kg
[2024-08-10] MEDS ORDERED: FAMOTIDINE 50 ML IV ONE (10:00)
[2024-08-10] MEDS ORDERED: SODIUM CHLORIDE 0.9% 1,000 ML IV ONE (10:00)
[2024-08-10] MEDS ORDERED: diphenhydrAMINE hydrochloride 50 MG/ML VIAL IV ONE (10:00)
[2024-08-10] MEDS ORDERED: Ketorolac Tromethamine 15 MG/ML VIAL IV ONE (10:00)
[2024-08-10] MEDS ORDERED: Metoclopramide Hydrochloride 10 MG/2 ML VIAL IV ONE (10:00)
[2024-08-10 10:13] LABS: BASO % 0.2 % (0.0-1.0); EOS # 0.1 10*3/uL (0.0-0.4); EOS % 1.3 % (1.0-4.0); HEMATOCRIT 37.1 % (37.0-47.0); MEAN CELL VOLUME 93.9 fl (81.0-99.0); MEAN CORPUSCULAR HGB 30.6 pg (27.0-31.0); MEAN CORPUSCULAR HGB CONC 32.6 g/dl (33.0-37.0); MONO # 0.7 10*3/uL (0.1-1.0); MONO % 7.2 % (3.0-9.0); NEUT # 6.3 10*3/uL (2.3-7.9); NEUT % 64.5 % (47.0-73.0); PLATELET COUNT AUTOMATED 348 10*3/uL (130-400); RED BLOOD COUNT 3.95 10*6/uL (4.10-5.10); WHITE BLOOD COUNT 9.8 10*3/uL (4.8-10.8)
[2024-08-10 10:31] LABS: BUN 8 mg/dl (9-23); CHLORIDE 104 mmol/L (98-107); POTASSIUM 3.9 mmol/L (3.4-5.1)
[2024-08-10] MEDS ORDERED: Ondansetron4 MG PO (10:53)
[2024-08-10] MEDS ORDERED: PEPCID20 MG PO (10:53)
== END 2024-08-10 11:25 | disposition home or self-care (01) ==
LOC: ED 08:59
PROVIDERS: Emergency Medicine
DX: R11.2 Nausea with vomiting, unspecified (principal); R19.7 Diarrhea, unspecified; R51.9 Headache, unspecified; I10 Essential (primary) hypertension; Z91.030 Bee allergy status; Z88.8 Allergy status to other drugs, medicaments and biological substances; Z79.899 Other long term (current) drug therapy

== ENCOUNTER 2024-11-26 14:02 | Emergency (ER) | payer MEDICAID ==
[~2024-11-26] VITALS: Ht 165.1 cm; Wt 54.9 kg
[~2024-11-26 14:02] MED LIST changes: +Ondansetron4 MG PO; +PEPCID20 MG PO
[2024-11-26] MEDS ORDERED: Acetaminophen/Hydrocodone 5 MG/325 MG TABLET PO ONE (16:40)
[2024-11-26] MEDS ORDERED: NAPROSYN500 MG PO (19:15)
== END 2024-11-26 19:19 | disposition home or self-care (01) ==
LOC: ED 14:02
DX: S46.912A Strain of unspecified muscle, fascia and tendon at shoulder and upper arm level, left arm, initial encounter (principal); J45.909 Unspecified asthma, uncomplicated; K21.9 Gastro-esophageal reflux disease without esophagitis; F32.A Depression, unspecified; F41.9 Anxiety disorder, unspecified; G43.909 Migraine, unspecified, not intractable, without status migrainosus; Z79.899 Other long term (current) drug therapy; Z88.8 Allergy status to other drugs, medicaments and biological substances; Z91.030 Bee allergy status; Z98.51 Tubal ligation status; Z98.890 Other specified postprocedural states; X50.9XXA Other and unspecified overexertion or strenuous movements or postures, initial encounter; Y93.89 Activity, other specified; Y92.89 Other specified places as the place of occurrence of the external cause; Y99.8 Other external cause status